=== PATIENT | female | born 1930 | race Caucasian/White ===

== ENCOUNTER 2017-06-18 11:50 | Inpatient (IN) | payer MEDICARE, BC ==
[2017-06-18] MEDS: Ondansetron 4 MG/2 ML SDV IVPUSH PRN ×2 (13:51→18:31)
[2017-06-18] MEDS: Dextrose 5%-0.45% NaCl 1,000 ML IV SCH (13:52)
[2017-06-18] MEDS: Piperacillin/Tazobactam/Dext 50 ML IV SCH ×2 (14:20→19:57)
[2017-06-18] MEDS ORDERED: Saliva Substitute Oral Spray 120 ML Bottle MUCMEM PRN (18:25)
[2017-06-19] MEDS: Dextrose 5%-0.45% NaCl 1,000 ML IV SCH (00:52)
[2017-06-19] MEDS: Piperacillin/Tazobactam/Dext 50 ML IV SCH ×3 (01:48→14:19)
[2017-06-19] MEDS: Ondansetron 4 MG/2 ML SDV IVPUSH PRN ×2 (05:33→11:42)
[2017-06-19 08:11] LABS: CHLORIDE,CL 99 mmol/L (98-115); SODIUM,NA 136 mmol/L (136-145)
[2017-06-19] MEDS ORDERED: D5 1/2 NS w/ 40 mEq/L KCl 1,000 ML IV SCH (08:45)
[2017-06-19] MEDS ORDERED: Brimonidine 0.2% Ophth Soln 15 ML Bottle EYEBOTH SCH (13:00)
[2017-06-19] MEDS ORDERED: Dorzolamide/Timolol 2%-0.5% Ophth Soln 10 ML Bottle EYELF SCH (13:00)
[2017-06-19] MEDS: Ondansetron 4 MG/2 ML SDV IVPUSH SCH ×2 (13:06→15:49)
--- NOTE | 2017-06-19 13:11 | PN ---
06/19/2017 PATIENT NAME: OSKAR BASS CHIEF COMPLAINT: Abdominal pain, nausea. She states she feels quite miserable. BRIEF HISTORY: I do not have the history and physical in front of me, but however, this patient was admitted yesterday by CHARY Walters, from the [facility]. The patient had had some ongoing abdominal pain, left mid to lower quadrant with leukocytosis yesterday in the clinic. She was admitted, placed on IV antibiotics for likely diverticula. However, according to the patient, she has not have any diverticular disease. She was quite miserable throughout the night with ongoing vomiting and nausea. White count this morning, 14,000, it was 15,000 yesterday in the [facility]. Hemoglobin and hematocrit are normal. Sodium normal. This morning, her potassium was 3.1 that will be treated. BUN and creatinine normal. She did have a normal lipase. PHYSICAL EXAM: The patient is quite distressed. VITAL SIGNS: Temperature is normal 98.7, blood pressure 124/66, heart rate 71, respiratory rate 16, O2 sats 92% to 93% on room air. LUNGS: Clear to auscultation. CV: Regular rate and rhythm. ABDOMEN: Slightly distended, however, not taut. Does have some abdominal pain around left mid upper to lower quadrant. : Rectal vault, on digital inspection, no stool. EXTREMITIES: No edema to her lower extremities. IMPRESSION/PLAN: 1. Ongoing nausea with abdominal pain, possible diverticular disease. We will continue with broad-spectrum Zosyn 3.375 g IV q.6 hours and continue n.p.o. I will give some IV fluids. CT of the abdomen and pelvis with contrast today. We will place nasogastric tube for decompression right now. 2. Nausea. Zofran 4 mg IV q.6 hours, start IV fluids. 3. Hypokalemia. We will change IV fluids to 40 of K. Overall plan, CT of the abdomen and pelvis today. Replace electrolytes, ongoing IV antibiotics, nasogastric tube for decompression. We will attempt soapsuds enema. Will see what CT demonstrates for further plan. /[id number]/MODL MTDD
[2017-06-19] MEDS ORDERED: Sodium Chloride 0.9% 50 ML SDV FLUSH ONE (14:14)
[2017-06-19 17:19] VITALS: BP 134/77
[2017-06-19] MEDS ORDERED: Iopamidol 612 MG/ML 75 ML Bottle IV PRN (22:14)
--- NOTE | 2017-06-22 09:38 | DISCH ---
ADMITTING DIAGNOSIS: Diverticulitis with abdominal pain, nausea and vomiting. FINAL DIAGNOSIS: Perforated bowel with necrotic bowel with free air, free fluid. BRIEF HISTORY AND ESSENTIAL FINDINGS: This is an 87-year-old patient, who had presented in the clinic on . She had been having lots of nausea and vomiting for the past 24 hours. It started on noon on Thursday. The patient states she was unable to eat for the last 24 hours prior to coming to the clinic. She would drink a little bit a water, then vomited up right away. She complained of a bloating sensation like she was full. She was having some small bowel movements for the last couple of days. She denied any fever or diarrhea. She does have a history of diverticulosis. She was admitted to the hospital. Abdominal x-ray was performed. The patient was started on Zosyn IV along with some Zofran as needed for nausea. SIGNIFICANT LABS, XRAYS, AND CONSULTATION FINDINGS: The patient's lab work that was obtained in clinic; CBC showed a white count elevated at 15.0. Lab work that was obtained in the hospital on 06/19/2017, CBC showed a white count elevated at 14.0. Chemistry panel showed potassium low at 3.1, otherwise unremarkable. The patient had a CT of the abdomen and pelvis performed on 06/19/2017, which showed large amount of free fluid, free air along with perforated bowel with necrotic bowel per Fabian Calabrese radiologist. COURSE IN HOSPITAL WITH COMPLICATIONS IF ANY: The patient has had an NG to suction while in the hospital with some output. She continued to have abdominal pain. She has been afebrile. The pain has been somewhat controlled. CONDITION TREATMENT AND FINAL DISPOSITION ON DISCHARGE AND PROGNOSIS: Condition is fair. Final decision would be [facility]. IMPRESSION AND PLAN: A perforated bowel with necrotic bowel along with free air and free fluid. Plan: I am going to transfer the patient to [facility] in [place] per ambulance. She is going to be going to room 835. Report was called to Dr. Pierre, operations and maintenance supervisor surgeon. /[id number]/MODL
== END 2017-06-19 17:25 | DRG 392 ==
LOC: KA.MS 11:50
PROVIDERS: ADMIT Physician Assistant Medical; ATTEND Family Medicine
PROC: 0D9670Z Drainage of Stomach with Drainage Device, Via Natural or Artificial Opening (ICD-10-PCS; principal; 2017-06-18)
DX: K57.20 Diverticulitis of large intestine with perforation and abscess without bleeding (principal); R10.9 Unspecified abdominal pain; E87.6 Hypokalemia; R11.2 Nausea with vomiting, unspecified; Z88.8 Allergy status to other drugs, medicaments and biological substances; Z79.899 Other long term (current) drug therapy
CPT/HCPCS: 36415; 74177; 80048; 85025; A9270-GY; J2405; J2543; J3480; J7042; Q9967